=== PATIENT | female | born 1945 | race Caucasian/White ===

== ENCOUNTER 2020-12-24 10:31 | Emergency (ER) | payer MEDICARE, OTHER ==
[2020-12-24 10:47] VITALS: BP 187/95; PULSE 87
[2020-12-24] MEDS ORDERED: Famotidine 20 MG Tab PO ONE (11:07)
[2020-12-24] MEDS ORDERED: Sodium Chloride 0.9% 10 ML Syringe FLUSH PRN (11:07)
[2020-12-24] MEDS ORDERED: diphenhydrAMINE 50 MG Cap PO ONE (11:07)
[2020-12-24] MEDS ORDERED: methylPREDNISolone Sodium Succinate 125 MG/2 ML SDV IVPUSH ONE (11:07)
[2020-12-24] MEDS ORDERED: diphenhydrAMINE 25 MG Cap PO ONE (11:16)
[2020-12-24] MEDS ORDERED: Lidocaine 1%/Sod Bicarbonate in NS 8.4% 1 ML Syringe IDERM ONE ×2 (11:17→11:29)
--- NOTE | 2020-12-24 11:36 | EDM.PDOC ---
ED HPI GENERAL MEDICAL PROBLEM - General Chief Complaint: Skin Complaint Stated Complaint: SKIN COMPLAINT-RASH/BODY Time Seen by Provider: 12/24/20 10:43 Source of Information: Reports: Patient, RN Notes Reviewed - History of Present Illness INITIAL COMMENTS - FREE TEXT/NARRATIVE: 75 yr old female with onset of rash, erythema R ant. leg about 2 1/2 wks ago that has not gotten better despite IV rocephin at the clinic times 3, clindamycin for a week that she finished yesterday. She did take some tramadol for discomfort 2 days ago and also started oral doxycyline 2 days ago. She started getting itchy that Friday evening after starting those 2 meds, yesterday started breaking out in generalized body rash worse today. No other unusual exposure or ingestion. No fever or chills. she is not diabetic. Ant. R leg still quite uncomfortable. Has put some cereve cream on her lower R leg, no other lotions or cream other than some beta steroid cream area of eczema R lower lat leg. she did have an US of her RLE done about 2 wks ago that was neg. Right Leg Pain Score (Numeric/FACES): 7 - Related Data Allergies Allergy/AdvReac Type Severity Reaction Status Date / Time latex Allergy Rash Verified 12/24/20 10:49 Sulfa (Sulfonamide Allergy Rash Verified 12/24/20 10:49 Antibiotics) sulfamethoxazole Allergy Rash Verified 12/24/20 10:49 [From Bactrim] trimethoprim [From Bactrim] Allergy Rash Verified 12/24/20 10:49 Home Meds: Home Meds Acetaminophen [Tylenol Extra Strength] 1 - 2 tab PO Q8H PRN 08/16/14 [History] Aspirin [Halfprin] 81 mg PO DAILY 08/16/14 [History] Beta-Carotene(A)-Vits C,E/Mins [Vision Vitamins] 1 tab PO DAILY 08/16/14 [History] Calcium Carbonate/Vitamin D3 [Calcium 600Mg-D3 400 Unit Sfgl] 1 cap PO DAILY 08/16/14 [History] Fish Oil/[place]-3 Fatty Acids [Fish Oil 1,000 MG] 1 gm PO DAILY 08/16/14 [History] Folic Acid 800 mcg PO DAILY 08/16/14 [History] Glucosamine/Methylsulfonylmeth [Glucosamine-MSM 500-400 MG] 1 cap PO DAILY 08/16/14 [History] Magnesium Oxide 1 - 2 tab PO BID 08/16/14 [History] Pantoprazole [ProTONIX] 40 mg PO DAILY 08/16/14 [History] estradioL [Estrace] 0.5 mg PO DAILY 08/16/14 [History] Cyanocobalamin (Vitamin B-12) [Vitamin B-12] 1,000 mcg PO DAILY 07/16/16 [History] Clindamycin HCl 150 mg PO Q8HR #14 capsule 12/24/20 [Rx] predniSONE [Prednisone] 50 mg PO DAILY #6 tablet 12/24/20 [Rx] Past Medical History HEENT History: Reports: Impaired Vision Cardiovascular History: Reports: Hypertension Respiratory History: Reports: Sleep Apnea Gastrointestinal History: Reports: Colon Polyp, GERD, Other (See Below) Other Gastrointestinal History: malignant GI stromal tumor [employer] INTER[employer] History: Reports: Musculoskeletal History: Reports: Other (See Below) Other Musculoskeletal History: osteopenia, sicatica Neurological History: Reports: Vertigo Dermatologic History: Reports: Other (See Below) Other Dermatologic History: left scalp lesion - Past Surgical History GI Surgical History: Reports: Colonoscopy, EGD, Hernia Repair/Other, Rebekah Fundoplication, Other (See Below) Other GI Surgeries/Procedures: esophogeal fundoplasty, partial gastrectomy Female Surgical History: Reports: Breast Biopsy, D&C, Hysterectomy Other Musculoskeletal Surgeries/Procedures:: right shoulder surgery Social & Family History - Tobacco Use Tobacco Use Status *Q: Never Tobacco User ED ROS GENERAL - Review of Systems Review Of Systems: See Below Constitutional: Denies: Fever, Chills HEENT: Reports: No Symptoms Respiratory: Denies: Shortness of Breath, Cough Cardiovascular: Denies: Chest Pain GI/Abdominal: Denies: Nausea, Vomiting Musculoskeletal: Reports: Leg Pain Skin: Reports: Rash, Erythema Neurological: Reports: No Symptoms ED EXAM, SKIN/RASH Exam: See Below General Appearance: Alert, Mild Distress Throat/Mouth: Normal Inspection Head: Atraumatic Neck: Supple Respiratory/Chest: No Respiratory Distress, Lungs Clear, Normal Breath Sounds Cardiovascular: Regular Rate, Rhythm Extremities: Pedal Edema (mild swelling R distal leg, calf nontender and not swollen), Redness (R ant. leg) Neurological: No Motor/Sensory Deficits Skin: Dry, Rash (generalize macular papular rash mostly on trunk, quite severe ant. and post. trunk, but also mild rash RLE) Characteristics: Maculopapular Course - Vital Signs Last Recorded V/S: Last Vital Signs Temp 96.9 F 12/24/20 10:43 Pulse 87 12/24/20 10:43 Resp 16 12/24/20 10:43 BP 187/95 H 12/24/20 10:43 Pulse Ox 94 L 12/24/20 10:43 - Orders/Labs/Meds Orders: Active Orders 24 hr Category Date Time Status Peripheral IV Care [RC] . DIRECTED Care 12/24/20 11:07 Active Sodium Chloride 0.9% [Saline Flush] Med 12/24/20 11:07 Active 10 ml FLUSH ASDIRECTED PRN Peripheral IV Insertion Adult [OM.PC] Stat Oth 12/24/20 11:07 Ordered Medication Orders Sodium Chloride (Sodium Chloride 0.9% 10 Ml Syringe) 10 ml FLUSH ASDIRECTED PRN PRN Reason: Keep Vein Open Last Admin: 12/24/20 11:22 Dose: 10 ml Documented by: DIDIER Labs: Laboratory Tests 12/24/20 12/24/20 12/24/20 Range/Units 11:35 11:35 11:35 WBC 7.53 (3.98-10.04) K/mm3 RBC 4.92 (3.98-5.22) M/mm3 Hgb 14.1 (11.2-15.7) gm/dl Hct 43.3 (34.1-44.9) % MCV 88.0 (79.4-94.8) fl MCH 28.7 (25.6-32.2) pg MCHC 32.6 (32.2-35.5) g/dl RDW Std Deviation 43.4 (36.4-46.3) fL Plt Count 279 D (182-369) K/mm3 MPV 9.5 (9.4-12.3) fl Neutrophils % (Manual) 81 H (40-60) % Band Neutrophils % 0 (0-10) % Lymphocytes % (Manual) 12 L (20-40) % Atypical Lymphs % 2 % Monocytes % (Manual) 4 (2-10) % Eosinophils % (Manual) 1 (0.7-5.8) % Basophils % (Manual) 0 L (0.1-1.2) Platelet Estimate Adequate Plt Morphology Comment Normal RBC Morph Comment Normal Sodium 144 (136-145) mEq/L Potassium 4.1 (3.5-5.1) mEq/L Chloride 106 (98-107) mEq/L Carbon Dioxide 28 (21-32) mEq/L Anion Gap 14.1 (5-15) BUN 18 (7-18) mg/dL Creatinine 1.0 (0.55-1.02) mg/dL Est Cr Clr Drug Dosing TNP Estimated GFR (MDRD) 54 (>60) mL/min BUN/Creatinine Ratio 18.0 (14-18) Glucose 91 (83-115) mg/dL Calcium 10.0 (8.5-10.1) mg/dL Total Bilirubin 0.4 (0.2-1.0) mg/dL AST 23 (15-37) U/L ALT 32 (14-59) U/L Alkaline Phosphatase 67 (46-116) U/L C-Reactive Protein 1.1 H* (<1.0) mg/dL Total Protein 7.4 (6.4-8.2) g/dl Albumin 3.8 (3.4-5.0) g/dl Globulin 3.6 gm/dL Albumin/Globulin Ratio 1.1 (1-2) Meds: Medications Generic Name Dose Route Start Last Admin Trade Name Kendra PRN Reason Stop Dose Admin Sodium Chloride 10 ml 12/24/20 11:07 12/24/20 11:22 Sodium Chloride 0.9% 10 Ml Syringe FLUSH 10 ml ASDIRECTED PRN Administration Keep Vein Open Discontinued Medications Generic Name Dose Route Start Last Admin Trade Name Kendra PRN Reason Stop Dose Admin Diphenhydramine HCl 25 mg 12/24/20 11:07 12/24/20 11:21 Diphenhydramine 50 Mg Cap PO 12/24/20 11:08 Not Given ONETIME ONE Diphenhydramine HCl 25 mg 12/24/20 11:16 12/24/20 11:21 Diphenhydramine 25 Mg Cap PO 12/24/20 11:17 25 mg ONETIME ONE Administration Famotidine 20 mg 12/24/20 11:07 12/24/20 11:15 Famotidine 20 Mg Tab PO 12/24/20 11:08 20 mg ONETIME ONE Administration Lidocaine/Sodium Bicarbonate 1 ml 12/24/20 11:17 12/24/20 11:37 Lidocaine 1%/Sod Bicarbonate In Ns 8.4% 1 Ml Syringe IDERM 12/24/20 11:18 Not Given ONETIME ONE Lidocaine/Sodium Bicarbonate 0.25 ml 12/24/20 11:29 12/24/20 11:37 Lidocaine 1%/Sod Bicarbonate In Ns 8.4% 1 Ml Syringe IDERM 12/24/20 11:30 0.25 ml ONETIME ONE Administration Methylprednisolone Sodium Succinate 125 mg 12/24/20 11:07 12/24/20 11:22 Methylprednisolone Sodium Succinate 125 Mg/2 Ml Sdv IVPUSH 12/24/20 11:08 125 mg ONETIME ONE Administration - Re-Assessments/Exams Free Text/Narrative Re-Assessment/Exam: 12/24/20 12:57 WBC 7,500, CRP only 1.1. Antonia tells me that about 2 wks ago her CRP was 7.9, and has gradually been trending down at the [facility] over the past week. The CRP declining to 1.1, continue nl WBC supports the consideration that the abx treat ment over the past 10 days has helped the cellulitis. I suspect that a lot of the inflamation visualized R lower ant leg allergic/inflamatory dermatitis. Her generalized quite severe trunk rash looks like a typical drug rash. Both the doxycycline and tramadol need to be stopped. She has known prior allergy to sulfa. It seems most safe to go back on the clindamycin for now. We have given her oral benadryl, pepcid, solumedrol 125 mg IV. Will have her continue benaryl, pepcid, prednisone 50 mg daily. She has a follow up clinic appt. for tomorrow. Discharge instr. as documented. Departure - Departure Time of Disposition: 12:33 Disposition: Home, Self-Care 01 Condition: Fair Clinical Impression: Allergic drug rash Cellulitis Qualifiers: Site of cellulitis: extremity Site of cellulitis of extremity: lower extremity Laterality: right Qualified Code(s): L03.115 - Cellulitis of right lower limb - Discharge Information Prescriptions: Clindamycin HCl 150 mg PO Q8HR #14 capsule predniSONE [Prednisone] 50 mg PO DAILY #6 tablet Referrals: Santos Lamar MD [Primary Care Provider] - Forms: ED Department Discharge Additional Instructions: Continue to not take any more doxycycline or tramadol for now. Resume clindamycin at a dosage of 150 mg 3 times daily. Prednisone 50 next dose 4:00 this afternoon and bunch q AM for the next 5 days. Theses prescriptions have been sent to [facility]. They are open this afternoon until 4 PM. Do not put any lotion or cream on your leg other than the steroid cream you have previously been prescribed. You may use the cereve on your back, chest or abd. as needed. Benadryl 50 mg 3 times daily if tolerated. If that makes you too drowsy back off to 25 mg 3 or 4 times daily. Pepcid (famotidine) 20 mg twice daily for the next week. See Dr Cardenas tomorrow as planned. Sepsis Event Note (ED) - Evaluation Sepsis Screening Result: No Definite Risk - Focused Exam Vital Signs: Vital Signs Temp Pulse Resp BP Pulse Ox 12/24/20 10:43 96.9 F 87 16 187/95 H 94 L - My Orders Last 24 Hours: My Active Orders 12/24/20 11:07 Peripheral IV Care [RC] . DIRECTED Sodium Chloride 0.9% [Saline Flush] 10 ml FLUSH ASDIRECTED PRN Peripheral IV Insertion Adult [OM.PC] Stat - Assessment/Plan Last 24 Hours: My Active Orders 12/24/20 11:07 Peripheral IV Care [RC] . DIRECTED Sodium Chloride 0.9% [Saline Flush] 10 ml FLUSH ASDIRECTED PRN Peripheral IV Insertion Adult [OM.PC] Stat
== END 2020-12-24 12:51 | disposition home or self-care (01) ==
LOC: JD.ED 10:31
DX: L03.115 Cellulitis of right lower limb (principal); T40.425A Adverse effect of tramadol, initial encounter; T36.4X5A Adverse effect of tetracyclines, initial encounter; K21.9 Gastro-esophageal reflux disease without esophagitis; I10 Essential (primary) hypertension; R60.0 Localized edema; Z88.1 Allergy status to other antibiotic agents; Z91.040 Latex allergy status; Z88.2 Allergy status to sulfonamides; Z79.899 Other long term (current) drug therapy
CPT/HCPCS: 36415; 80053; 85007; 85027; 86140; 96374; 99283; A9270; J2930

== ENCOUNTER 2024-11-04 12:19 | Day surgery (SDC) | payer MEDICARE, OTHER ==
[2024-11-04] MEDS: Lidocaine 1% PF 2 ML SDV INJECT SCH (11:37)
[2024-11-04] MEDS: Phenylephrine 2.5% Ophth Soln 2 ML Bot EYERT SCH (11:37)
[2024-11-04] MEDS: Tetracaine HCl/PF 0.5% 4 ML Bottle EYEBOTH SCH (11:37)
[2024-11-04] MEDS: Ofloxacin 0.3% Ophth Soln 5 ML Bottle EYERT SCH (11:38)
[2024-11-04] MEDS: Pilocarpine 4% Ophth Soln 15 ML Bot EYERT SCH (11:38)
[2024-11-04] MEDS: Cefuroxime 10 MG/ML SYRINGE EYERT SCH (11:38)
[2024-11-04] MEDS: Brimonidine 0.2% Ophth Soln 5 ML Bottle EYERT SCH (11:38)
[2024-11-04] MEDS: Tropicamide 1% Ophth Soln 3 ML Bottle EYERT SCH (13:27)
[2024-11-04 16:03] VITALS: BP 135/73; PULSE 65
== END 2024-11-04 15:10 | disposition home or self-care (01) ==
LOC: JD.SDS 12:19
PROVIDERS: ATTEND Ophthalmology
DX: H25.813 Combined forms of age-related cataract, bilateral (principal); E78.2 Mixed hyperlipidemia; K21.9 Gastro-esophageal reflux disease without esophagitis; H35.371 Puckering of macula, right eye; H31.091 Other chorioretinal scars, right eye; H43.813 Vitreous degeneration, bilateral; H11.823 Conjunctivochalasis, bilateral; D48.5 Neoplasm of uncertain behavior of skin; Z79.899 Other long term (current) drug therapy; Z87.891 Personal history of nicotine dependence
CPT/HCPCS: 66984; A9270; J0697; J3490

== ENCOUNTER 2024-12-09 14:06 | Day surgery (SDC) | payer MEDICARE, OTHER ==
[2024-12-09] MEDS: Phenylephrine 2.5% Ophth Soln 2 ML Bot EYELF SCH (14:33)
[2024-12-09] MEDS: Lidocaine 1% PF 2 ML SDV INJECT SCH (14:33)
[2024-12-09] MEDS: Tetracaine HCl/PF 0.5% 4 ML Bottle EYEBOTH SCH (14:34)
[2024-12-09] MEDS: Brimonidine 0.2% Ophth Soln 5 ML Bottle EYELF SCH (14:34)
[2024-12-09] MEDS: Ofloxacin 0.3% Ophth Soln 5 ML Bottle EYELF SCH (14:34)
[2024-12-09] MEDS: Cefuroxime 10 MG/ML SYRINGE EYELF SCH (14:34)
[2024-12-09] MEDS: Pilocarpine 4% Ophth Soln 15 ML Bot EYELF SCH (14:34)
[2024-12-09] MEDS ORDERED: Erythromycin Base 0.5% Ophth Oint 1 GM Tube ONE (15:11)
[2024-12-09] MEDS: Tropicamide 1% Ophth Soln 3 ML Bottle EYELF SCH (15:39)
[2024-12-09] MEDS: Lidocaine 1% with EPINEPHrine 1:100,000 20 ML MDV ONE (17:08)
[2024-12-09 18:03] VITALS: BP 148/68; PULSE 88
== END 2024-12-09 17:22 | disposition home or self-care (01) ==
LOC: JD.SDS 14:06
PROVIDERS: ATTEND Ophthalmology
DX: H26.9 Unspecified cataract (principal); H21.81 Floppy iris syndrome; H21.40 Pupillary membranes, unspecified eye; D48.5 Neoplasm of uncertain behavior of skin; I10 Essential (primary) hypertension; Z88.8 Allergy status to other drugs, medicaments and biological substances; Z88.2 Allergy status to sulfonamides; Z91.040 Latex allergy status; Z79.82 Long term (current) use of aspirin
CPT/HCPCS: 66982; 67840; A9270; J0697; J2004; J3490